=== PATIENT | male | born 1955 | race Caucasian/White ===

== ENCOUNTER 2016-07-30 09:00 | Inpatient (IN) | payer MEDICARE, BC ==
[~2016-07-30] VITALS: Ht 180.3 cm; Wt 137.8 kg
--- NOTE | ~2016-07-30 | PUL ---
PATIENT'S NAME: BRYON GOLD [facility] AGE: 60 Y [address] ROOM: [address] [address] LOCATION: [facility] [place] ADMIT DATE: 08/06/2016 Pulmonary DISCHARGE DATE: 08/11/2016 FAMILY PHYSICIAN: Satinder Mortensen ATTENDING PHYSICIAN: Marcellus Vieira NAME OF PROCEDURE: Overnight Pulse Oximetry DATE OF PROCEDURE: August 09, 2016 REASON FOR EXAM: Nocturnal hypoxemia RESULTS: The test was started on room air, but supplemental oxygen at 1 liter/minute was added approximately 2 hours into the study. The recording time was 9 hours, 14 minutes, with a total valid sampling time of 8 hours, 57 minutes. The highest pulse was 93, lowest pulse was 65, with a mean pulse of 77. The highest SpO2 was 97%, lowest SpO2 was 66%, with a mean SpO2 of 85.9%. The patient spent 6 hours, 24 seconds with SpO2 less than 89%. The desaturation event index was elevated at 25.8. PHYSICIAN INTERPRETATION: The patient has evidence of significant nocturnal hypoxia and would qualify for supplemental oxygen as per Medicare criteria. However, because of the severity of his nocturnal hypoxia and elevated desaturation event index a sleep study is recommended at this time. MD VJ VILLASEÑOR/sincere /[id number] dtt: 08/15/16 1228 , SHABANA KEMP dtd: 08/14/16 0904
--- NOTE | ~2016-07-30 | DS ---
PATIENT'S NAME: BRYON FARNK [facility] AGE: 60 Y [address] ROOM: [place] [address] LOCATION: [facility] [place] ADMIT DATE: 08/06/2016 Discharge Summary DISCHARGE DATE: 08/11/2016 FAMILY PHYSICIAN: Satinder Mortensen ATTENDING PHYSICIAN: Marcellus Vieira ADMITTING DIAGNOSIS: Left foot wound with chronic pain and discomfort of left ankle and foot, status post failed ankle and hindfoot fusion. DISCHARGE DIAGNOSES: 1. Left foot wound with chronic pain and discomfort of left ankle and foot, failed ankle and hindfoot fusion, status post left [id number]-[id number] amputation. 2. Acute on chronic hypoxic hypercapnic respiratory failure. SECONDARY DIAGNOSES: 1. Chronic low back pain. 2. Obesity. 3. Chronic obstructive pulmonary disease. 4. Coronary artery disease. 5. Hypogammaglobulinemia. 6. History of pulmonary embolus. 7. History of gout. 8. Allergic rhinitis. 9. Hypertension. 10. Hyperlipidemia. 11. Paroxysmal atrial fibrillation, on long-term anticoagulation. CONSULTATIONS: Were to the Hospitalist Service for medical management and Anshu Urena. PROCEDURES: The patient underwent the following procedure on August 06, 2016, by Dr. Vieira. 1. Left below-knee amputation. Discharge status was good. HISTORY OF PRESENT ILLNESS: Mr. Frank was seen by Dr. Vieira in the office for evaluation regarding his left lower extremity. He does have a history of left foot wound, chronic left ankle and foot pain with failed left ankle and hindfoot fusion. The patient when seen by Dr. Vieira last reported he was still having difficulty with left lower extremity. At that time, he wanted to discuss further the left below-knee amputations. At that time, the risks, benefits, and alternatives were discussed with the patient regarding surgery. The patient decided to proceed with surgery at that time. HOSPITAL COURSE: The patient underwent the following procedure on August 06, PATIENT'S NAME: BRYON FRANK [facility] AGE: 60 Y [address] ROOM: [place] [address] LOCATION: [facility] [place] ADMIT DATE: 08/06/2016 Discharge Summary DISCHARGE DATE: 08/11/2016 FAMILY PHYSICIAN: Satinder Mortensen ATTENDING PHYSICIAN: Marcellus Vieira 2016. Postoperatively, the patient did have to have his pain medications adjusted to keep him comfortable. He was started on a GRILL PREP COOK pump for pain control. The patient was eventually weaned from the GRILL PREP COOK pump to a regime of oral medications that kept him comfortable. The patient was medically optimized by the Hospitalist Service including his O2 saturation at discharge. The patient worked with Physical Therapy during his admission. He was nonweightbearing on the left lower extremity. The patient was seen by Nathalie Mcmahon of [facility] for fitting of a postoperative stump guard for his operative extremity. The patient was found to be medically optimized and with adequate pain control and stable for discharge on August 11, 2016, and was discharged home at that time. DISCHARGE INSTRUCTIONS: The patient is to follow a cardiac diet. He is to be nonweightbearing of left lower extremity. The patient was fitted with a stump guard at that prior to discharge. DISCHARGE MEDICATIONS: Stop medications: 1. [place] 5/325. 2. Diclofenac. 3. Fish oil. New medications: 1. Tylenol 1000 mg every 6 hours as needed for pain. 2. Colace 100 mg p.o. b.i.d. p.r.n. constipation. 3. Meloxicam 7.5 mg p.o. b.i.d. 4. Polyethylene glycol 17 g p.o. b.i.d. p.r.n. constipation. 5. Dilaudid 2 mg 1-2 tabs every 4 hours as needed for pain. 6. Milk of magnesia 30 mL as needed for constipation. Otherwise, the patient was instructed to continue his preadmission medications as instructed by his internal medicine doctor. FOLLOWUP: The patient is to follow up in Dr. Vieira' office on August 21, 2016 at 9:00 a.m. The patient is to follow up with DELMAR López on August 18, 2016 at 1:00 p.m. Discharge status: Good NORY HURTADO PA-C FOR MD ANNITA BLAKE/alyson /[id number] d: 08/17/160 t: 08/18/16 1742, DISCHARGE SUMMARY
--- NOTE | ~2016-07-30 | HP ---
PATIENT'S NAME: BRYON GOLD [facility] AGE: 60 Y [address] ROOM: [place] [address] LOCATION: [facility] [place] ADMIT DATE: 08/06/2016 History & Physical DISCHARGE DATE: 08/11/2016 FAMILY PHYSICIAN: Satinder Mortensen ATTENDING PHYSICIAN: Marcellus Vieira DATE OF SERVICE: 08/06/2016 I find no changes in the previous H and P. This serves as my update to the patient's previously history and physical. MD SILVESTRE BLAKE/alyson /[id number] D: [id number] T: [id number] HISTORY & PHYSICAL
--- NOTE | ~2016-07-30 | OR ---
PATIENT'S NAME: BRYON FRANK [facility] AGE: 60 Y [address] ROOM: [place] [id number] LOCATION: [facility] ADMIT DATE: 08/06/2016 OR/Procedure Report DISCHARGE DATE: FAMILY PHYSICIAN: Satinder Mortensen ATTENDING PHYSICIAN: PUSHPA CANADA SURGEON: Pushpa [place] MD SHEETER OPERATOR: Zechariah Dhillon PA-C. DATE OF PROCEDURE: 08/06/2016 PREOPERATIVE DIAGNOSES: 1. Left foot and ankle chronic wound issues, osteomyelitis, and gangrene. 2. History of multiple orthopedic procedures to the left lower extremity, failed previous hindfoot arthrodesis. POSTOPERATIVE DIAGNOSES: 1. Left foot and ankle chronic wound issues, osteomyelitis, and gangrene. 2. History of multiple orthopedic procedures to the left lower extremity, failed previous hindfoot arthrodesis. PROCEDURE: 1. Left below-knee amputation. 2. Use of intraoperative fluoroscopy, less than 1 hour. ANESTHESIA: General endotracheal anesthesia with peripheral nerve block. FLUIDS: See anesthesia report. ESTIMATED BLOOD LOSS: 100 mL. SPECIMEN: Below-knee amputation. COMPLICATIONS: None. DISPOSITION: Stable in PACU. COUNTS: All counts were correct. INDICATIONS: Mr. Frank is a pleasant 60-year-old gentleman, who underwent the noted procedures above. The risks, benefits, and alternatives pursuing surgical intervention were discussed with the patient in detail. He elected to proceed with surgery. Anesthesia was consulted for their perioperative evaluation of the patient. I marked the left lower extremity indicating the correct surgical site. DESCRIPTION OF PROCEDURE: The patient was brought from the holding area to PATIENT'S NAME: BRYON FRANK [facility] AGE: 60 Y [address] ROOM: [address] [address] LOCATION: [facility] ADMIT DATE: 08/06/2016 OR/Procedure Report DISCHARGE DATE: FAMILY PHYSICIAN: Satinder Mortensen ATTENDING PHYSICIAN: PUSHPA CANADA the operating room. A time-out was performed. General endotracheal anesthesia was administered. Clindamycin antibiotic was administered for perioperative prophylaxis. The left lower extremity was then prepped and draped in a sterile fashion. I turned my attention to the leg. An Esmarch was used to exsanguinate the limb. The tourniquet was inflated to 250 mmHg. I began by marking out my below-knee amputation incision. Then using a 15-blade knife, I performed my below-knee amputation. Identified and cauterized small vessels. I found the main arterial and venous vessels to the leg and used an 0 stick-tie Vicryl suture to ligate the vessels. I identified the nerve traveling in the neurovascular bundle. Using a dissecting scissor, I dissected proximally. I placed a Devora clamp on them and place traction upon them and then cut them proximally to allow them to retract into the deeper tissue proximally. Identified my site for amputation of both the tibia and fibula. Using oscillating saw, I osteotomized the tibia. Approximately 4 cm proximal to that, I used an oscillating saw to osteotomize the fibula. I used a large knife to amputate the limb down to the level of the ankle. The limb was discarded into a biohazard bin. I introduced intraoperative fluoroscopy. I identified and confirmed before and after indicating a successful below-knee amputation. Using the oscillating saw again, I contoured the tibia by performing a chamfer cut anteriorly. I used a rasp to smooth the ends of both the tibia and fibula. The stump was packed with sponges and the tourniquet was let down. Identified any unligated vessels and either cauterized using a Bovie electrocautery device or used an 0 Vicryl suture to tie them off. The wound was then copiously irrigated with a normal sterile saline solution via pulsatile lavage. Once hemostasis was maintained with the tourniquet down, I then reinflated the tourniquet. A drill two holes into the distal tibia and placed #2 Ethibond suture through them. I then approximated the anterior fascia of the leg with the Achilles tendon. I then used 0 Vicryl suture to approximate the deeper tissues. A 2-0 Vicryl suture was used to approximate the more superficial subcutaneous tissues and an 0 PDS suture was used in an interrupted horizontal mattress fashion to approximate the skin. A Hemovac drain was placed prior to closure and placed on suction. The drain was then transferred over to Hemovac canister. PATIENT'S NAME: BRYON FRANK [facility] AGE: 60 Y [address] ROOM: [id number] [place], [place] [address] LOCATION: [facility] ADMIT DATE: 08/06/2016 OR/Procedure Report DISCHARGE DATE: FAMILY PHYSICIAN: Satinder Mortensen ATTENDING PHYSICIAN: PUSHPA CANADA Compressive stump dressing was placed in the form of Xeroform, followed by 4x4, and Webril. The patient was then placed into a splint. The tourniquet was let down. The patient was then transferred to operating table onto the stretcher and extubated. He was brought to the recovery room in stable condition. There were no intraoperative complications noted. Of note, my PA, Zechariah Dhillon PA-C, played an integral role in the intraoperative care of this patient. This included preoperative positioning, intraoperative expert retraction, and closing and splinting functions. IMPRESSION: The patient is status post the noted procedures above. PLAN: The patient will be nonweightbearing on the left lower extremity. He will be maintained in a splint. Postoperative antibiotics will be administered per routine. Hemovac canister will remain in place for two days. The Hospitalist Service will be consulted for management of the patient's concomitant medical comorbidities. Postoperative pain control in the form of Percocet and IV morphine. We will consult [facility] to place the patient into a stump guard on postoperative day #2. Provided the stump is clean, dry, and intact. MD SILVESTRE BLAKE/alyson /[id number] d: 08/06/16 1323 t: 08/07/16 0822, OPERATIVE SUMMARY
[~2016-07-30 09:00] MED LIST: ASPIRIN325 MG PO; ATROVENT NASAL0.03 % NOSE; CRESTOR20 MG PO; DEMADEX20 MG PO; DILAUDID 2MG(HYD2 MG PO; ELIQUIS5 MG PO; FISH OIL 1,2001 EACH PO; ISORDIL30 MG PO; LAMISIL250 MG PO; LASIX20 MG PO; LEVOTHROID (SY50 MCG PO; LYRICA300 MG PO; NORCO 5-325 TA1 EACH PO; SINGULAIR10 MG PO; SKELAXIN800 MG PO; SYMBICORT 16010.2 GM INH; THERAGRAN-M1 TAB PO; TOPROL XL 5050 MG PO; TUDORZA PRESS400 MCG INH; VITAMIN C1000 M1 PO; VOLTAREN75 MG PO; XANAX0.5 MG PO; XYZAL5 MG PO; ZYLOPRIM300 MG PO
[2016-07-30] MEDS ORDERED: MAGOX 400400 MG PO (09:01)
--- NOTE | 2016-08-06 16:27 | NUR ---
Significant Event:Patient received from PACU at 1515. Dressing dry and intact to lt stump. Hemavac to lt stump. Morphine ROOFING CONTRACTOR. Follow up:
[2016-08-06 16:48] LABS: ANION GAP 8.1 (10.0-19.0); BLOOD UREA NITROGEN 19 mg/dL (6-24); CALCIUM 7.7 mg/dL (8.5-10.5); CHLORIDE 110 mMol/L (96-110); CO2 31 mMol/L (22-32); CREATININE 0.8 mg/dL (0.6-1.3); ESTIMATED GFR (MDRD EQUATION) > 60; POTASSIUM 4.1 mMol/L (3.7-5.1); SODIUM 145 mMol/L (135-145)
--- NOTE | 2016-08-06 17:32 | NUR ---
Took over care at 1630. Pt rates pain at 7 left stump. IV fluids changed to NS at 100/hr. Lab draw done. Pt hemovac intact. Stump elevated on folded blankets. Dressing dry and intact. No void yet. Uses morphine DIRECTOR EXPERIMENTAL MEDICINE.
--- NOTE | 2016-08-07 04:32 | NUR ---
Pt on tele, no calls. Morphine dispatch supervisor weaned to 1mg q 60 min. Pt requests norco over percocet. Pt had 24 demands 25 deliveries for a total of 24mg per dispatch supervisor. Pt had 85 cc's out of hemovac. Dressing C/D/I. L leg elevated. Pt's to being in [facility] today as we don't stock it. Pt rates pain 5-7 and refuses additional pain medication. PO tylenol held this morning due to switching to norco from dispatch supervisor. End tidal on. 2L 02 per nc. Voiding w/o difficulty.
[2016-08-07 05:00] LABS: BASOPHIL % 0.6 %; EOSINOPHIL # 0.1 K/uL (0.0-0.5); EOSINOPHIL % 1.5 %; HEMATOCRIT 43.1 % (37.0-53.0); IMMATURE GRANULOCYTE % 0.6 %; LYMPHOCYTE # 1.2 K/uL (0.8-4.0); LYMPHOCYTE % 17.7 %; MCH 30.9 pg (27.0-34.0); MCHC 32.5 gm/dL (32.0-36.5); MCV 95.1 fl (83.0-98.0); MONOCYTE # 0.7 K/uL (0.0-1.0); MONOCYTE % 9.7 %; MPV 10.4 fl (9.4-12.4); NEUTROPHIL # (ANC) 4.7 K/uL (1.4-9.0); NEUTROPHIL % 69.9 %; NRBC % 0 /100WBC (0-0.00); PLATELET COUNT 116 K/uL (150-450); RBC 4.53 M/uL (3.50-5.50); WBC 6.7 K/uL (4.0-11.0)
--- NOTE | 2016-08-07 16:11 | NUR ---
Significant Event: PT ALERT AND ORIENTED. UP WITH 2 ASSIST. TRANSFERS FAIR. USES WALKER. UP IN THE RECLINER THIS SHIFT. TAKES DILUADID FOR PAIN ABOUT EVERY 2 HOURS. O2 AT 2LPM/NC. DRESSING TO STUMP INTACT. HEMOVAC INTACT. 15 CC OUT. ICE TO STUMP. FAMILY IN THE ROOM THIS AFTERNOON. USES INCENTIVE SPIROMETER FREQ. Follow up:
--- NOTE | 2016-08-08 04:40 | NUR ---
Pain ranged from a 3-7/10. Pt had toradol once at 2029.Dilaudid 2mg po last at 0450. Valium once at 191. 10 cc's out of hemovac. No bm's this shift. Pt still on 2L O2. Stump elevated. Dressing C/D/I. Dressing will be changed around 0700 and [facility] will bring stumpguard.
[2016-08-08 06:01] LABS: BLOOD UREA NITROGEN 16 mg/dL (6-24); CALCIUM 8.2 mg/dL (8.5-10.5); CHLORIDE 106 mMol/L (96-110); CO2 34 mMol/L (22-32); CREATININE 0.9 mg/dL (0.6-1.3); ESTIMATED GFR (MDRD EQUATION) > 60; SODIUM 143 mMol/L (135-145)
--- NOTE | 2016-08-08 12:30 | NUR ---
SPOKE TO PATIENT AND HER SPOUSE AT THE BEDSIDE. INTRODUCED CM AND OUR ROLE. PATIENT LIVES IN OWN HOME WITH SPOUSE AND IS PLANNING ON RETURNING THERE ONCE HE IS READY FOR DISCHARGE. PATIENT WOULD LIKE TO HAVE HHE FROM [facility] IN [place]. I PRESENTED THE OPTION OF SNF OR SB AND PATIENT AND HIS SPOUSE ARE NOT OPENED TO THIS. I MADE REFERRAL TO [facility] IN [place] AND SPOKE TO PEYTON FAXED INFO TO HER AND PLACED FACE TO FACE ON THE CHART.
--- NOTE | 2016-08-08 17:28 | NUR ---
Significant Event: Pt has been in pain all day since dressing change Oxycodone and mobic started at 1222 and dilaudid x5 last at 1551. MS x2 earlier. Pt v/s within normal limits. Pt now on room air with oxygen remaining stable at 90-92%. Encouraged to use IS. Tele in place. Voids without difficulty per urinal. Stump guard in place. Dressing clean dry and intact. Pt c/o occasional numbness and tingling to LLE throughout the day. Up with 2 assist in wheelchair and to shower.
--- NOTE | 2016-08-08 18:48 | NUR ---
I was preceptor today for student nurse Hilda Sharpe and agree with her charting for the shift.
--- NOTE | 2016-08-09 04:32 | NUR ---
Significant Event: Dressing is clean, dry and intact. Has stump guard on. On telemetry with no calls. MOM was given. On 3 L of oxygen nasal cannula. CSM WNL. Voids without difficulty. Dilaudid last at 416. Oxycotin at 2051. Follow up:
--- NOTE | 2016-08-09 18:56 | NUR ---
Significant Event: UP TO RECLINER WITH ASSIST OF PT. HAS STUMP PHYSIOTHERAPY AIDE TO LEFT LOWER LEG. HAS ICE ON PER HIS REQUEST. RUNNING LOW BP THIS AM DEMADEX HELD. HAD DILAUDID 2 MG 1 TAB X3 LAST AT 1650,, HAD SOMA 350MG 1 TAB AT 1300. HAD BUMEX 2 MG 1 TAB AT 1530. WILL HAVE TREND OX DONE TONIGHT. CON'T ON 3L, RETAIL LOSS PREVENTION SPECIALIST AWARE.. Follow up:
--- NOTE | 2016-08-10 03:55 | NUR ---
Shift Summary: Patient able to transfer well to wheelchair and back. Had a large BM this am. Uses the WC to get to the BR and transfer to the toliet, then back again. Is on telemetery. No calls this shift. Patient's saline lock leaks. He fell asleep before I could remove it. He plans to go home today. Gave 2mg Dilaudid at 0244.
[2016-08-10 05:43] LABS: ANION GAP 9.1 (10.0-19.0); BLOOD UREA NITROGEN 18 mg/dL (6-24); CALCIUM 8.7 mg/dL (8.5-10.5); CHLORIDE 104 mMol/L (96-110); CO2 33 mMol/L (22-32); CREATININE 0.9 mg/dL (0.6-1.3); ESTIMATED GFR (MDRD EQUATION) > 60; POTASSIUM 4.1 mMol/L (3.7-5.1); SODIUM 142 mMol/L (135-145)
[2016-08-10 15:57] LABS: HEMATOCRIT 47.3 % (37.0-53.0); HEMOGLOBIN 15.6 g/dL (11.0-16.0)
--- NOTE | 2016-08-10 18:09 | NUR ---
Significant Event: UP TO W/C AND COMMODE WITH 1 ASSIST, TRANSFERS WELL, WELL LR BM. HAD DILAUDID 2MG 1 TAB X2 LAST AT 1610...NO DRAINAGE FROM RIGHT STUMP, STUMP ROPE TOW OPERATOR INTACT. HOPE TO DISMISS THURSDAY. Follow up:
--- NOTE | 2016-08-11 03:47 | NUR ---
Shift Summary: Patient has not requested any PRN pain medication this shift. Can transfer well with standby assist. Unable to wean off O2. Possible discharge home today.
[2016-08-11 05:47] LABS: HEMATOCRIT 46.5 % (37.0-53.0); HEMOGLOBIN 14.9 g/dL (11.0-16.0)
[2016-08-11] MEDS ORDERED: TYLENOL EXTRA500 MG PO (12:14)
[2016-08-11] MEDS ORDERED: COLACE100 MG PO (12:15)
[2016-08-11] MEDS ORDERED: MOBIC7.5 MG PO (12:16)
[2016-08-11] MEDS ORDERED: MIRALAX17 GM PO (12:18)
[2016-08-11] MEDS ORDERED: DILAUDID 2MG(HYD2 MG PO (12:18)
[2016-08-11] MEDS ORDERED: MILK OF MA400 MG/5 M PO ×2 (12:19→12:20)
--- NOTE | 2016-08-11 13:07 | NUR ---
D: ORDERS RECEIVED FOR THE PATIENT TO BE DISCHARGED HOME TODAY WITH FAMILY. I: DISMISSAL INSTRUCTIONS WERE PREPARED AND REVIEWED WITH THE PATIENT AND HIS FAMILY VIRTUALLY. THE FOLLOWING INFORMATION WAS DISCUSSED INCLUDING KRAMES TEACHING SHEETS PROVIDED: UPPER BODY STRENGTHING AFTER AMPUTATION, USING A WALKER AFTER AMPUTATION, WHAT TO EXPECT-THE MONTHS AFTER AMPUTATION SURGERY, MANAGING PAIN AFTER AMPUTATION SURGERY, PHANTOM SENSATION AND PHANTOM PAIN AFTER AMPUTATION, EATING HEART-HEALTHY FOODS, TYLENOL, COLACE, MOBIC, MIRALAX, NORCO, MOM, AND PREVENTING DVT. REVIEWED FOLLOW UP APPOINTMENTS AND ALL NEW MEDICATIONS. R: THE PATIENT AND HIS FAMILY BOTH VERBALIZED UNDERSTANDING OF THE DISMISSAL EDUCATION AT THE TIME OF TEACHING WITH NO FURTHER QUESTIONS. P: THE ABOVE INFORMATION WAS SHARED WITH THE PRIMARY NURSE AND THE CHARGE NURSE THAT THE PATIENT DISMISSAL EDUCATION WAS COMPLETED. THE PATIENT IS READY FOR DISCHARGE TO THE FRONT DOOR VIA WHEEL CHAIR BY NURSING STAFF WHEN RIDE IS AVAILABLE TO [facility] OPENER.
--- NOTE | 2016-08-11 13:55 | NUR ---
RECEIVED REFERRAL THAT PATIENT IS BEING DISCHARGE HOME AND THAT HE WILL NEED HHC.NOTIFIED [facility] IN [place] AND SPOKE TO OSC[facility]. UPDATED HER THAT PATIENT IS BEING DISCHARGE HOME TODAY. AND FAXED THE ORDERS TO HER.
[2016-09-01] MEDS ORDERED: ATROVENT I0.5 MG/2.5 (10:23)
[2016-09-01] MEDS ORDERED: BETAPACE (GENER80 MG (10:24)
[2016-09-01] MEDS ORDERED: DICLOFENAC SODI25 MG (10:24)
[2016-09-01] MEDS ORDERED: ASPIRIN325 MG (10:25)
[2016-09-01] MEDS ORDERED: FISH OIL 1,2001 EACH (10:25)
[2016-09-01] MEDS ORDERED: LAMISIL250 MG (10:25)
[2016-09-01] MEDS ORDERED: MAG-OX-400(241400 MG (10:26)
[2016-09-01] MEDS ORDERED: TUDORZA PRESS400 MCG (15:03)
== END 2016-08-11 14:13 | disposition home health service (06) | DRG 856 ==
LOC: G3N 08-06 05:51 → GMSU 08-09 16:32
PROVIDERS: Family Medicine; Nurse Practitioner Family; ADMIT Orthopaedic Surgery Adult Reconstructive Orthopaedic Surgery
PROC: 0Y6J0Z1 Detachment at Left Lower Leg, High, Open Approach (ICD-10-PCS; principal; 2016-08-06)
DX: T81.4XXA Infection following a procedure, initial encounter (principal); J96.21 Acute and chronic respiratory failure with hypoxia; I96 Gangrene, not elsewhere classified; I11.0 Hypertensive heart disease with heart failure; Z68.41 Body mass index [BMI] 40.0-44.9, adult; M86.9 Osteomyelitis, unspecified; I50.32 Chronic diastolic (congestive) heart failure; L97.329 Non-pressure chronic ulcer of left ankle with unspecified severity; E87.5 Hyperkalemia; E66.01 Morbid (severe) obesity due to excess calories; K44.9 Diaphragmatic hernia without obstruction or gangrene; I25.10 Atherosclerotic heart disease of native coronary artery without angina pectoris; E78.5 Hyperlipidemia, unspecified; M10.9 Gout, unspecified; L97.529 Non-pressure chronic ulcer of other part of left foot with unspecified severity; S91.302A Unspecified open wound, left foot, initial encounter; I48.0 Paroxysmal atrial fibrillation; G47.33 Obstructive sleep apnea (adult) (pediatric); K64.9 Unspecified hemorrhoids; Z79.01 Long term (current) use of anticoagulants; Z87.891 Personal history of nicotine dependence; Z88.0 Allergy status to penicillin; Z86.711 Personal history of pulmonary embolism; Z88.8 Allergy status to other drugs, medicaments and biological substances
CPT/HCPCS: J0131; J1885; J2001; J2270; J3010; J3480; J7030

== ENCOUNTER 2016-08-27 13:30 | Inpatient (IN) | payer MEDICARE, BC ==
[~2016-08-27] VITALS: Ht 180.3 cm; Wt 130.8 kg
--- NOTE | ~2016-08-27 | CON ---
PATIENT'S NAME: BRYON FRANK [facility] AGE: 60 Y [address] ROOM: [place] [address] LOCATION: [facility] ADMIT DATE: 08/27/2016 Consultation DISCHARGE DATE: FAMILY PHYSICIAN: Satinder Mortensen ATTENDING PHYSICIAN: PUSHPA CANADA DATE OF CONSULTATION: 08/27/2016 REFERRING PHYSICIAN: KEVIN DIEZ MD PRIMARY CARE PROVIDER: Satinder Mortensen PA-C. This is a consultation as requested by Dr. Canada for medical management. CHIEF COMPLAINT: Infected left BKA stump incision. HISTORY OF PRESENT ILLNESS: Mr. Bryon Frank is a 60-year-old male, who is being admitted today for an I and D of an infected left BKA incision. The patient underwent his left BKA on 08/06/[address] Canada. He has had difficulty following this with some erythema, drainage, and warmth. He has had poor healing. He was seen today in the clinic and was advised to be admitted for an I and D. The patient denies any rigors and may have had occasional fever, although did not measure this. He lives at home with his Simeon. He has had no shortness of breath, cough, or chest pain. The patient does have a pertinent past medical history, which includes paroxysmal atrial fibrillation of which he takes Eliquis for. He has had a history of pulmonary embolism "years ago." He also has peripheral vascular disease and has had stents placed in his bilateral groins and also has CAD of which he has had three stents placed "at least 10 years ago." The patient did get cardiac clearance before undergoing his BKA and we will obtain those records for further details and clarification. REVIEW OF SYSTEMS: All other systems are reviewed and were negative except what is mentioned in the HPI. ALLERGIES: THE PATIENT DOES LIST ALLERGIES INCLUDING BACTRIM, PENICILLIN, AND DOXYCYCLINE AND CEFTIN, ALL OF WHICH HE STATES IS CAUSING ITCHING AND NAUSEA. NO TRUE RASH. NO ANAPHYLACTIC REACTION. PAST MEDICAL HISTORY: PATIENT'S NAME: BRYON FRANK [facility] AGE: 60 Y [address] ROOM: [place] [address] LOCATION: [facility] ADMIT DATE: 08/27/2016 Consultation DISCHARGE DATE: FAMILY PHYSICIAN: Satinder Mortensen ATTENDING PHYSICIAN: PUSHPA CANADA 1. Chronic pain. 2. Obesity. 3. COPD. 4. CAD, status post stents. 5. History of PE. 6. History of gout. 7. Hyperlipidemia. 8. PAF, currently on long-term anticoagulation in the form of Eliquis. 9. Allergic rhinitis. 10. The patient states a history of SANDRA, has undergone a sleep study but is noncompliant and does not wear CPAP. 11. Peripheral vascular disease, status post bilateral stent placement. FAMILY HISTORY: Significant for heart disease in his mother. SOCIAL HISTORY: The patient currently lives with his in [place]. He is employed at [employer] working in the [employer] section. They have two grown children. The patient is a tobacco user. He is currently abstaining but has smoked anywhere from 4 to 5 packs per day for "many years." He denies any alcohol use currently. Denies any illicit drugs. PAST SURGICAL HISTORY: 1. Cardiac stent placement x3 "at least 10 years ago.". 2. Bilateral groin angioplasty with stenting. 3. Bilateral TKA. 4. Appendectomy. 5. Left BKA 08/06/2016. MEDICATIONS: 1. Crestor 20 mg p.o. q.h.s. 2. Skelaxin 800 mg p.o. q.i.d. p.r.n. spasms. 3. Allopurinol 300 mg p.o. q.a.m. 4. Symbicort two puffs inh b.i.d. 5. Lyrica 300 mg p.o. b.i.d. 6. Tudorza 400 mcg one puff inh b.i.d. 7. Singulair 10 mg p.o. q.h.s. 8. Xanax 0.5 mg p.o. b.i.d. anxiety. 9. Ascorbic acid 1000 mg p.o. daily. 10. Multivitamin 1 tablet p.o. daily. 11. Levocetirizine dihydrochloride 5 mg p.o. daily. 12. Torsemide 20 mg p.o. b.i.d. 13. Eliquis 5 mg p.o. b.i.d. 14. Lamisil 250 mg p.o. daily. PATIENT'S NAME: BRYON FRANK [facility] AGE: 60 Y [address] ROOM: [id number] [place], [place] [address] LOCATION: [facility] ADMIT DATE: 08/27/2016 Consultation DISCHARGE DATE: FAMILY PHYSICIAN: Satinder Mortensen ATTENDING PHYSICIAN: PUSHPA CANADA 15. Magnesium oxide 400 mg p.o. b.i.d. 16. Acetaminophen 500 mg two tablets p.o. every 6 hours p.r.n. mild pain. 17. Mobic 7.5 mg p.o. b.i.d. 18. MiraLAX 17 g p.o. daily. 19. Dilaudid 2 mg one or two tablets p.o. q.4 hours p.r.n. severe pain. 20. Clindamycin 300 mg p.o. b.i.d. 21. Hydrocodone/acetaminophen one tablet p.o. q.6 hours p.r.n. pain. PHYSICAL EXAMINATION: VITAL SIGNS: Temperature 97.7, pulse 71, respirations 16, and blood pressure 118/74. Weight 288 pounds. BMI 40.2. GENERAL: Well-developed, well-nourished, male, who appears slightly older than the stated age of 60, who rests in bed with somewhat of a flat affect. HEENT: Head: Normocephalic and atraumatic. Eyes are nonicteric. CV: S1 and S2. No murmurs, gallops, or rubs. Regular rhythm and rate. LUNGS: Diminished throughout. I cannot appreciate any wheezes, crackles, or rales. ABDOMEN: Obese, soft, nontender, and nondistended. Diminished bowel sounds. No organomegaly. EXTREMITIES: Status post left BKA. Right lower extremity shows trace edema. A couple of superficial scrapes on the anterior portion of his ovalles. PSYCHIATRIC: Slightly flat affect. Normal speech. NEUROLOGIC: Cranial nerves II through XII are intact. The patient does move all extremities. Follows commands. Alert and oriented x3. SKIN: The patient does have erythema about the incision of the stump. There are interrupted sutures still in place. There is some exudative discharge noted. LABORATORY DATA: CBC shows white count of 6900, hemoglobin 16.3, hematocrit 49.1, MCV 93.7, MCH 31.1, MCHC 33.2, and platelets 198, 60 segs, and 25 lymphocytes. BMP is unremarkable. Electrolytes all within normal limits. Creatinine specifically is 1.1. GFR is greater than 60. ASSESSMENT: A 60-year-old man with chronic pain, on multiple medications to help manage this. 1. Status post recent left BKA, now presenting with infection of the incision. Dr. Canada plans to take the patient OR tomorrow for an I and D. 2. Chronic obstructive pulmonary disease. 3. Morbid obesity. BMI 40.2. Discussed lifestyle changes for management. 4. Dyslipidemia. Continue with Crestor. 5. Paroxysmal atrial fibrillation. The patient took his dose of Eliquis PATIENT'S NAME: BRYON FRANK [facility] AGE: 60 Y [address] ROOM: [place] [address] LOCATION: [facility] ADMIT DATE: 08/27/2016 Consultation DISCHARGE DATE: FAMILY PHYSICIAN: Satinder Mortensen ATTENDING PHYSICIAN: PUSHPA CANADA this morning. We will hold his evening dose and likely need to consider heparin bridge following procedure tomorrow. 6. History of gout. We will continue with allopurinol at this point. 7. Anxiety. The patient will have Xanax available to him as per his home dosing. 8. History of coronary artery disease. The patient is asymptomatic at this point. We will continue to monitor. 9. History of obstructive sleep apnea. The patient is noncompliant to CPAP. We will need to monitor him closely particularly with managing pain medicines. 10. Peripheral vascular disease. The patient does have bilateral stents placed. We will continue to monitor him. 11. Deep vein thrombosis prophylaxis. Likely, we place the patient on a heparin drip following the procedure and ultimately transitioning back to his Eliquis. 12. The patient was cleared by Cardiology for his BKA three weeks ago. He is a high risk patient for a low risk surgery. We will continue to follow him throughout his hospitalization to assist in any medical issues. Thank you for allowing us to help care for this patient. Plan of this patient is discussed with Dr. Diez, who also seen the patient in consultation. KANIKA DAI PA-C FOR MD ADELSO QUARLES/modl /[id number] CC: DELMAR Lewis MD d: 08/28/16 0003 t: 09/01/16 1949, CONSULTATION REPORT
--- NOTE | ~2016-08-27 | OR ---
PATIENT'S NAME: BRYON FRANK [facility] AGE: 60 Y [address] ROOM: [place] [address] LOCATION: [facility] ADMIT DATE: 08/27/2016 OR/Procedure Report DISCHARGE DATE: FAMILY PHYSICIAN: Satinder Mortensen ATTENDING PHYSICIAN: PUSHPA CANADA SURGEON: Pushpa Canada MD AOC DIRECTOR INTELLIGENCE OFFICER: Zechariah Dhillon PA-C DATE OF PROCEDURE: 08/28/2016 PREOPERATIVE DIAGNOSIS: Left full-thickness wound dehiscence of below-knee amputation. POSTOPERATIVE DIAGNOSIS: Left full-thickness wound dehiscence of below-knee amputation. PROCEDURES PERFORMED: 1. Irrigation and debridement of left below-knee amputation surgical stump. Debridement included skin, subcutaneous tissue, muscle, and fascia. Wound measured 20 cm x 3 cm x 3 cm. 2. Placement of negative-pressure wound VAC, greater than 50 sq cm. ANESTHESIA: General endotracheal anesthesia. FLUIDS: See anesthesia report. ESTIMATED BLOOD LOSS: Minimal. TOURNIQUET: Left proximal thigh to 250 mmHg. SPECIMENS: None. COMPLICATIONS: None. DISPOSITION: Stable, in PACU. COUNTS: All counts were correct. INDICATIONS: Mr. Frank is a 60-year-old gentleman who underwent the noted procedures above. The risks, benefits, and alternatives to pursuing surgical intervention were discussed with the patient in detail. He elected to proceed with surgery. Anesthesia was consulted for their perioperative evaluation of the patient. I marked the patient's left lower extremity indicating the correct surgical site. DESCRIPTION OF PROCEDURE: The patient was brought from the holding area to PATIENT'S NAME: BRYON FRANK [facility] AGE: 60 Y [address] ROOM: [address] [address] LOCATION: [facility] ADMIT DATE: 08/27/2016 OR/Procedure Report DISCHARGE DATE: FAMILY PHYSICIAN: Satinder Mortensen ATTENDING PHYSICIAN: PUSHPA CANADA the operating room. A time-out was performed. General endotracheal anesthesia was administered. Clindamycin antibiotic was administered. The left lower extremity was then prepped and draped in the sterile fashion. A time-out was performed. I turned my attention to the left stump. An Esmarch was used to exsanguinate the limb, and the tourniquet was inflated to 250 mmHg. I began by performing a debridement of the surgical stump. I used a 15 blade knife, a series of curettes and rongeurs. Once the area was adequately debrided, dimensions were obtained. The wound was then copiously irrigated with a normal sterile saline solution via pulsatile lavage using 3 L of fluid. Once a thorough debridement which included skin, subcutaneous tissue, muscle, and fascia was undertaken, I placed a negative-pressure wound VAC. The seal was satisfactory. A sterile stump dressing was placed in the form of Webril and Thompson. The tourniquet was let down. The patient was then transferred from the operating table onto the stretcher and extubated. He was brought to the recovery room in stable condition. There were no intraoperative complications noted. Of note, my PA, Zechariah Dhillon PA-C, played an integral role in the intraoperative care of this patient. This included preoperative positioning, intraoperative expert retraction, and closing and dressing functions. IMPRESSION: The patient is status post the noted procedures above. PLAN: The patient will be nonweightbearing on the left lower extremity. We will continue antibiotics in the form of clindamycin. The hospitalist will continue to manage the patient's concomitant medical comorbidities. The Wound Care Service will be consulted to manage the patient's wound going forward. Will likely perform a wound VAC change in the next 1 to 2 days. The patient may require subsequent debridement depending on the condition of the stump. We will continue to monitor him closely postoperatively. We will continue with DVT prophylaxis. PATIENT'S NAME: BRYON FRANK [facility] AGE: 60 Y [address] ROOM: [place] [address] LOCATION: [facility] ADMIT DATE: 08/27/2016 OR/Procedure Report DISCHARGE DATE: FAMILY PHYSICIAN: Satinder Mortensen ATTENDING PHYSICIAN: PUSHPA CANADA MD RCD/alyson /[id number] d: 08/28/16 1521 t: 08/28/16 1548, OPERATIVE SUMMARY
--- NOTE | ~2016-08-27 | DS ---
PATIENT'S NAME: BRYON GOLD [facility] AGE: 60 Y [address] ROOM: [id number] [place], [place] [address] [place] [facility] ADMIT DATE: 08/27/2016 Discharge Summary DISCHARGE DATE: 08/30/2016 FAMILY PHYSICIAN: Satinder Mortensen ATTENDING PHYSICIAN: Marcellus Vieira ADMITTING DIAGNOSIS: Left below the knee amputation incision wound dehiscence. DISCHARGE DIAGNOSIS: Left below the knee amputation incision wound dehiscence. SECONDARY DIAGNOSES: Chronic pain, obesity, chronic obstructive pulmonary disease, coronary artery disease, history of pulmonary embolism, history of gout, hyperlipidemia, paroxysmal atrial fibrillation, allergic rhinitis, obstructive sleep apnea, and peripheral vascular disease. CONSULTATIONS: Hospitalist Service for medical management and to the Wound Care Clinic for management for negative pressure wound VAC. The patient underwent the following procedures on August 28, 2016, by Dr. Vieira. 1. Irrigation and debridement of left below-knee amputation surgical stump. Debridement included skin/subcutaneous tissue/muscle and fascia. Wound measured approximately 20 x 3 x 3 cm. 2. Placement of negative-pressure wound VAC, greater than 50 sq cm. HISTORY OF PRESENT ILLNESS: The patient is a 60-year-old male, who had a left BKA done by Dr. Vieira on August 06, 2016. The patient was monitored in close followup by Dr. Vieira. In the office, it was found that he had poor wound healing, some erythema and drainage, and warmth from the incision site. The patient after being seen by Dr. Vieira in the office, was admitted for an irrigation and debridement of the left lower extremity stump incision with place of a negative wound VAC. HOSPITAL COURSE: The patient was admitted from Dr. Vieira' office on August 27, 2016. He underwent the following procedure by Dr. Vieira on August 28, 2016: Irrigation and debridement of left eeatg-tmd-evze amputation and surgical stump. Debridement included skin, subcutaneous tissue, muscle, and fascia. Wound measured approximately 20 x 3 x 3 cm. Placement of negative pressure wound VAC greater than 50 square cm. Postoperatively, the patient was kept under adequate pain control with medicines. He was on IV antibiotics but was changed to p.o. linezolid after Infectious Disease was contacted by phone after the culture report came back. The culture report showed staph epidermidis that was sensitive to tetracycline, gentamicin, rifampin, vancomycin, linezolid, and quinupristin/dalfopristin. The Wound Care Clinic was also consulted during his admission for management of his negative pressure wound VAC. The patient was kept nonweightbearing of his right lower PATIENT'S NAME: BRYON GOLD [facility] AGE: 60 Y [address] ROOM: [place] [address] [place]: [facility]MIT DATE: 08/27/2016 Discharge Summary DISCHARGE DATE: 08/30/2016 FAMILY PHYSICIAN: Satinder Mortensen ATTENDING PHYSICIAN: Marcellus Vieira extremity during his admission. The hospitalist Service was consulted and manage him medically. Having consulted Infectious Disease via the phone for postoperative antibiotics and having had a home wound VAC arranged for the patient it was determined he was stable to be discharged home on August 30, 2016, and was done at that time. DISCHARGE STATUS: Good. DISCHARGE MEDICATIONS: Stop medications magnesium oxide and clindamycin. New medications are Zyvox 600 mg p.o. b.i.d. for 10-14 days. The patient was continued on Dilaudid 2 mg 1-2 tabs every 4 hours as needed for pain. He was also continued on [place] 5/325 one tab every 6 hours as needed for pain. He is also on meloxicam 7.5 mg p.o. B.i.d. Otherwise, the patient was instructed to continue his preadmission medications as instructed by his internal medicine doctor. DISCHARGE INSTRUCTIONS: The patient is to follow up in Dr. Vieira' office in approximately one week after discharge. The patient is also to contact Infectious Disease doctors at [facility] specialist fortwo-week followup appointment. He is to be nonweightbearing of his left lower extremity. He is to follow a cardiac diet. He is to follow up with Wound Care for wound VAC changes. DISCHARGE STATUS: Good. NORY HURTADO PA-C FOR MD ANNITA BLAKE/alyson /[id number] d: 09/13/16 1429 t: 09/16/16 1346, DISCHARGE SUMMARY
[~2016-08-27 13:30] MED LIST changes: +COLACE100 MG PO; +MAGOX 400400 MG PO; +MILK OF MA400 MG/5 M PO; +MIRALAX17 GM PO; +MOBIC7.5 MG PO; +TYLENOL EXTRA500 MG PO
[2016-08-27 15:28] LABS: BASOPHIL # 0.1 K/uL (0.0-0.2); BASOPHIL % 0.9 %; EOSINOPHIL # 0.2 K/uL (0.0-0.5); EOSINOPHIL % 3.5 %; HEMATOCRIT 49.1 % (37.0-53.0); HEMOGLOBIN 16.3 g/dL (11.0-16.0); IMMATURE GRANULOCYTE % 0.3 %; LYMPHOCYTE # 1.7 K/uL (0.8-4.0); LYMPHOCYTE % 25.4 %; MCH 31.1 pg (27.0-34.0); MCHC 33.2 gm/dL (32.0-36.5); MCV 93.7 fl (83.0-98.0); MONOCYTE # 0.7 K/uL (0.0-1.0); MONOCYTE % 9.5 %; MPV 10.6 fl (9.4-12.4); NEUTROPHIL # (ANC) 4.2 K/uL (1.4-9.0); NEUTROPHIL % 60.4 %; NRBC % 0 /100WBC (0-0.00); PLATELET COUNT 198 K/uL (150-450); RBC 5.24 M/uL (3.50-5.50); RDW-CV 14.5 % (11.9-14.6); WBC 6.9 K/uL (4.0-11.0)
[2016-08-27 15:37] LABS: INR - (THERAPEUTIC) 1.05 (0.92-1.07); PTT 31 SECONDS (25-32)
[2016-08-27 15:41] LABS: ANION GAP 11.3 (10.0-19.0); BLOOD UREA NITROGEN 24 mg/dL (6-24); CALCIUM 8.6 mg/dL (8.5-10.5); CHLORIDE 104 mMol/L (96-110); CO2 30 mMol/L (22-32); CREATININE 1.1 mg/dL (0.6-1.3); ESTIMATED GFR (MDRD EQUATION) > 60; POTASSIUM 4.3 mMol/L (3.7-5.1); SODIUM 141 mMol/L (135-145)
--- NOTE | 2016-08-27 15:44 | NUR ---
PT is 60 y/o male admit for infection L)BKA stump for . Pt alert and oriented x3. Allergies to sulfa,PCN,ceftin,bactrim. Red and yellow bracelet on. Resides at home with his . Pt had a left BKA on 08/06/16. Hx htn,hyper- cholest,CABG,CAD,DVT,PE,stents,edema,COPD,sleep apnea-no CPAP,arthritis,gout, spinal stenosis,anxiety,depression. Plan for possible I&D tomorrow.
[2016-08-27] MEDS ORDERED: CLINDAMYCIN150 MG PO (16:04)
[2016-08-27] MEDS ORDERED: NORCO 5-325 TA1 EACH PO (16:04)
--- NOTE | 2016-08-27 18:39 | NUR ---
Significant Event: Patient admitted from the Dr office. L) stump dressing changed with a small amount of yellow drainage. Incision to the stump has sutures but is open between the sutures. Redness noted. Cultures obtained and sent to lab. IV fluids started at 60 ml/hr and Clindamycin 600 mg IV started. Patient will be NPO after midnight for an I&D of the incision. Permit is not signed. Follow up: Surgery tomorrow.
--- NOTE | 2016-08-28 03:40 | NUR ---
Pt. alert and oriented x3. RA. VSS. NWB to left side? BTK amputation with protector. IV antibx. IV to L) forearm with fluids. NPO since midnight for I&D in AM. Preop checklist started. Consents signed. Last norco at 0100. W/C if goes to BR. Uses urinal at bedside. Cooperative with cares.
--- NOTE | 2016-08-28 09:46 | NUR ---
ON VITAL SIGNS, OXYGEN SA02 87%. DENIES SOB. ENCOURAGED TO DEEP BREATHE AND COUGH. OXYGEN 2LN/C PLACED PER BILATERAL NARES. SA02 INCREASED TO 95%.
--- NOTE | 2016-08-28 16:27 | NUR ---
Significant Event:PT. HAD I/D OF LEFT STUMP WITH WOUND VAC PLACEMENT. RETURNED FROM RECOVERY AT 1400. A/O AND C/O STUMP PAIN. POST OP VS STABLE. ON 4L O2 PER NC WHEN RETURNED TO FLOOR AND NOW TAPERED TO 2L PER NC. ATE REGULAR DIET. USES URINAL TO VOID. A/O. IV TO LFA WITH ANTIBIOTICS AND FLUIDS. Follow up:
--- NOTE | 2016-08-29 04:27 | NUR ---
Pt. alert and oriented. 3L of O2 continuously. VSS. IV to L) forearm with fluids running. Wound vac to L) Stump. Postop vitals WNL. Tolerating foods well. IV antibx. Percocet 1 tab given every 2 hours. 1-2 assist to w/c. Repo. self in bed. Cooperative with cares.
--- NOTE | 2016-08-29 11:37 | NUR ---
SPOKE TO PATIENT REGARDING CM AND OUR ROLE. PATIENT LIVES IN OWN HOME WITH SPOUSE AND HE ANTICIPATES THAT HE WILL BE DISCHARGE HOME LATER TODAY IF WOUND VAC CAN BE ARRANGED. HE HAS BEEN GETTING HHC THROUGH [facility]. HE IS OPENED TO HAVING IT RESUME. BUT VOICES CONCERNS ABOUT HIS STUMP WOUND TO WHETHER HE NEEDS TO FOLLOW UP WITH [facility] OR IF HE CAN HAVE WOUND CARE DONE BY [facility]. I HAVE NOTIFIED CHANCE WITH [facility] AND HAD TO LEAVE A MESSAGE FOR HER TO CONTACT ME.
--- NOTE | 2016-08-29 14:42 | NUR ---
SPOKE TO CHANCE WITH [facility] SHE IS STILL WAITING FOR [facility] TO APPROVE WOUND VAC. SHE HAS SPOKE TO BRYON AND HE WOULD LIKE TO GO TO THE WO THREE DAYS A WEEK FOR WOUND VAC CHANGES AND SHE HAS SCHEDULED THIS. I NOTIFIED [facility] AND SPOKE TO OSCAR UPDATED HER THAT PATIENT HAS A WOUND VAC AND WILL BE GOING TO [facility] FOR THE DRESSING CHANGES. SHE WILL UPDATE MAGDIEL AND WILL GET BACK TO ME TO WHETHER OR NOT THEY CAN STILL SEE PATIENT SINCE HE IS BEING SEEN BY [facility].
--- NOTE | 2016-08-29 16:00 | NUR ---
RECEIVED CALL FROM CHANCE WITH [facility] AND MEDICARE HAS APPROVED THE WOUND VAC. SPOKE TO Eduin ONEAL APRN AND UPDATED HIM HE ANTICIPATES THAT PATIENT MAY BE READY FOR DISCHARGE IN NEXT 24 TO 48 HOURS THEY ARE GOING TO TRY TO WEAN THE O2. I RECEIVED CALL EARLIER TODAY FROM MAGDIEL WITH [facility] UPDATED HER THAT BRYON WILL BE DISCHARGED WITH WOUND VAC AND WILL FOLLOW UP WITH WO AN OUT PATIENT. SHE WILL CONTACT BRYON TO SEE IF HE HAS ANY NEEDS BUT DOES NOT FEEL THEY NEED TO SEE HIM SINCE HE IS GETTING WOUND CARE THROUGH [facility].
--- NOTE | 2016-08-30 03:51 | NUR ---
Pt. alert and orinted. VSS. 3L of O2 continuously. IV to L) forearm with fluids running. IV antibx d/c'd. Wound vac to L) stump with very minimal output. Percocet/skelaxin/norco are being taken currently. Last skelaxin was at 0315. Last pain pill was at 0100. 1-2 assist to w/c. Uses urinal at bedside. Possible d/c today.
--- NOTE | 2016-08-30 16:49 | NUR ---
Significant event: Plan for dismissal today, possibly after 1800. Dolphin last at 1230. percocet last at 0940. Lasix given IV and is voiding well. Weaned to room air, SAO2 93-95% on room air. Lung sounds clear. Left stump dressing dry and intact. Home wound vac placed today by [facility] nurse. Transfer with one assist, gait belt and walker.
[2016-08-30] MEDS ORDERED: ZYVOX600 MG PO (17:24)
[2016-09-01] MEDS ORDERED: ATROVENT I0.5 MG/2.5 (10:23)
[2016-09-01] MEDS ORDERED: DICLOFENAC SODI25 MG (10:24)
[2016-09-01] MEDS ORDERED: BETAPACE (GENER80 MG (10:24)
[2016-09-01] MEDS ORDERED: FISH OIL 1,2001 EACH (10:25)
[2016-09-01] MEDS ORDERED: LAMISIL250 MG (10:25)
[2016-09-01] MEDS ORDERED: ASPIRIN325 MG (10:25)
[2016-09-01] MEDS ORDERED: MAG-OX-400(241400 MG (10:26)
[2016-09-01] MEDS ORDERED: TUDORZA PRESS400 MCG (15:03)
== END 2016-08-30 18:00 | disposition disaster alternative care site (69) | DRG 908 ==
LOC: GMSU 14:04
PROVIDERS: ADMIT Orthopaedic Surgery Adult Reconstructive Orthopaedic Surgery
PROC: 0KBT0ZZ Excision of Left Lower Leg Muscle, Open Approach (ICD-10-PCS; principal; 2016-08-28)
DX: T81.30XA Disruption of wound, unspecified, initial encounter (principal); T81.4XXA Infection following a procedure, initial encounter; I10 Essential (primary) hypertension; Z68.41 Body mass index [BMI] 40.0-44.9, adult; E66.01 Morbid (severe) obesity due to excess calories; E78.5 Hyperlipidemia, unspecified; G47.33 Obstructive sleep apnea (adult) (pediatric); I48.0 Paroxysmal atrial fibrillation; I73.9 Peripheral vascular disease, unspecified; J44.9 Chronic obstructive pulmonary disease, unspecified; I25.10 Atherosclerotic heart disease of native coronary artery without angina pectoris; Z95.5 Presence of coronary angioplasty implant and graft; Z79.01 Long term (current) use of anticoagulants; Z88.8 Allergy status to other drugs, medicaments and biological substances; Z89.512 Acquired absence of left leg below knee
CPT/HCPCS: J1940; J2250; J2405; J3010; J3480; J7030; J7042; J7120

== ENCOUNTER → 2016-10-15 | Outpatient (CLI) | payer MEDICARE, BC ==
[~2016-10-15] MED LIST changes: +ASPIRIN325 MG; +ATROVENT I0.5 MG/2.5; +BETAPACE (GENER80 MG; +CLINDAMYCIN150 MG PO; +DICLOFENAC SODI25 MG; +FISH OIL 1,2001 EACH; +LAMISIL250 MG; +MAG-OX-400(241400 MG; +TUDORZA PRESS400 MCG; +ZYVOX600 MG PO
[2016-10-15 14:58] LABS: CREATININE 1.2 mg/dL (0.6-1.3)
== END | disposition disaster alternative care site (69) ==
LOC: GLAB 14:02
PROVIDERS: Internal Medicine Infectious Disease
DX: T87.89 Other complications of amputation stump (principal); L97.829 Non-pressure chronic ulcer of other part of left lower leg with unspecified severity; M89.8X6 Other specified disorders of bone, lower leg; Z89.512 Acquired absence of left leg below knee; Z96.653 Presence of artificial knee joint, bilateral
CPT/HCPCS: Q9967